=== PATIENT | female | born 1960 | race Caucasian/White ===

== ENCOUNTER → 2017-07-15 | Outpatient (CLI) | payer OTHER | LOC: HYPER 06:58 | DX: E11.622 Type 2 diabetes mellitus with other skin ulcer (principal); L97.821 Non-pressure chronic ulcer of other part of left lower leg limited to breakdown of skin; L89.154 Pressure ulcer of sacral region, stage 4; K57.21 Diverticulitis of large intestine with perforation and abscess with bleeding; E11.40 Type 2 diabetes mellitus with diabetic neuropathy, unspecified; I50.20 Unspecified systolic (congestive) heart failure; D64.9 Anemia, unspecified; J45.909 Unspecified asthma, uncomplicated; R60.9 Edema, unspecified; L30.9 Dermatitis, unspecified; Z79.84 Long term (current) use of oral hypoglycemic drugs; F41.9 Anxiety disorder, unspecified; M19.90 Unspecified osteoarthritis, unspecified site; Z90.710 Acquired absence of both cervix and uterus; Z87.891 Personal history of nicotine dependence; Z72.89 Other problems related to lifestyle ==

== ENCOUNTER → 2017-07-21 | Outpatient (CLI) | payer OTHER | LOC: HYPER 06:46 | DX: S81.801D Unspecified open wound, right lower leg, subsequent encounter (principal); S81.802D Unspecified open wound, left lower leg, subsequent encounter; L89.154 Pressure ulcer of sacral region, stage 4; E11.40 Type 2 diabetes mellitus with diabetic neuropathy, unspecified; K57.21 Diverticulitis of large intestine with perforation and abscess with bleeding; D64.9 Anemia, unspecified; R60.9 Edema, unspecified; L30.9 Dermatitis, unspecified; F41.9 Anxiety disorder, unspecified; J45.909 Unspecified asthma, uncomplicated; M19.90 Unspecified osteoarthritis, unspecified site; Z79.84 Long term (current) use of oral hypoglycemic drugs; Z90.710 Acquired absence of both cervix and uterus; Z87.891 Personal history of nicotine dependence; Z72.89 Other problems related to lifestyle; X58.XXXD Exposure to other specified factors, subsequent encounter ==

== ENCOUNTER → 2017-07-29 | Outpatient (CLI) | payer OTHER | LOC: HYPER 07:08 | DX: E11.622 Type 2 diabetes mellitus with other skin ulcer (principal); L89.154 Pressure ulcer of sacral region, stage 4; L98.491 Non-pressure chronic ulcer of skin of other sites limited to breakdown of skin; S81.801D Unspecified open wound, right lower leg, subsequent encounter; S81.802D Unspecified open wound, left lower leg, subsequent encounter; K57.21 Diverticulitis of large intestine with perforation and abscess with bleeding; E11.40 Type 2 diabetes mellitus with diabetic neuropathy, unspecified; D64.9 Anemia, unspecified; Z79.84 Long term (current) use of oral hypoglycemic drugs; L30.9 Dermatitis, unspecified; F41.9 Anxiety disorder, unspecified; J45.909 Unspecified asthma, uncomplicated; M19.90 Unspecified osteoarthritis, unspecified site; Z90.710 Acquired absence of both cervix and uterus; Z87.891 Personal history of nicotine dependence; Z72.89 Other problems related to lifestyle; X58.XXXD Exposure to other specified factors, subsequent encounter ==

== ENCOUNTER → 2017-08-19 | Outpatient (CLI) | payer OTHER | LOC: HYPER 07:11 | DX: E11.622 Type 2 diabetes mellitus with other skin ulcer (principal); L89.154 Pressure ulcer of sacral region, stage 4; L98.491 Non-pressure chronic ulcer of skin of other sites limited to breakdown of skin; S81.801D Unspecified open wound, right lower leg, subsequent encounter; S81.802D Unspecified open wound, left lower leg, subsequent encounter; K57.21 Diverticulitis of large intestine with perforation and abscess with bleeding; E11.40 Type 2 diabetes mellitus with diabetic neuropathy, unspecified; I50.20 Unspecified systolic (congestive) heart failure; J45.909 Unspecified asthma, uncomplicated; Z79.84 Long term (current) use of oral hypoglycemic drugs; L30.9 Dermatitis, unspecified; F41.9 Anxiety disorder, unspecified; M19.90 Unspecified osteoarthritis, unspecified site; Z87.891 Personal history of nicotine dependence; Z72.89 Other problems related to lifestyle; Z90.710 Acquired absence of both cervix and uterus; X58.XXXD Exposure to other specified factors, subsequent encounter ==

== ENCOUNTER → 2017-12-30 | Outpatient (CLI) | payer OTHER | LOC: HYPER 06:51 | DX: E11.622 Type 2 diabetes mellitus with other skin ulcer (principal); L98.491 Non-pressure chronic ulcer of skin of other sites limited to breakdown of skin; L89.154 Pressure ulcer of sacral region, stage 4; E11.40 Type 2 diabetes mellitus with diabetic neuropathy, unspecified; D64.9 Anemia, unspecified; R60.9 Edema, unspecified; F41.9 Anxiety disorder, unspecified; J45.909 Unspecified asthma, uncomplicated; M19.90 Unspecified osteoarthritis, unspecified site; Z90.710 Acquired absence of both cervix and uterus; Z87.891 Personal history of nicotine dependence; Z72.89 Other problems related to lifestyle ==

== ENCOUNTER → 2018-01-27 | Outpatient (CLI) | payer OTHER | LOC: HYPER 07:00 | DX: E11.622 Type 2 diabetes mellitus with other skin ulcer (principal); L98.491 Non-pressure chronic ulcer of skin of other sites limited to breakdown of skin; L89.154 Pressure ulcer of sacral region, stage 4; E11.40 Type 2 diabetes mellitus with diabetic neuropathy, unspecified; I50.20 Unspecified systolic (congestive) heart failure; D64.9 Anemia, unspecified; J45.909 Unspecified asthma, uncomplicated; R60.9 Edema, unspecified; K60.3 Anal fistula; F41.9 Anxiety disorder, unspecified; M19.90 Unspecified osteoarthritis, unspecified site; Z90.710 Acquired absence of both cervix and uterus; Z87.891 Personal history of nicotine dependence; Z72.89 Other problems related to lifestyle ==

== ENCOUNTER → 2018-04-12 | Outpatient (CLI) | payer OTHER | LOC: HYPER 06:49 | DX: E11.622 Type 2 diabetes mellitus with other skin ulcer (principal); L89.154 Pressure ulcer of sacral region, stage 4; L98.491 Non-pressure chronic ulcer of skin of other sites limited to breakdown of skin; E11.40 Type 2 diabetes mellitus with diabetic neuropathy, unspecified; I50.20 Unspecified systolic (congestive) heart failure; M19.90 Unspecified osteoarthritis, unspecified site; K60.3 Anal fistula; D64.9 Anemia, unspecified; J45.909 Unspecified asthma, uncomplicated; F41.9 Anxiety disorder, unspecified; Z90.710 Acquired absence of both cervix and uterus; Z87.891 Personal history of nicotine dependence ==

== ENCOUNTER → 2018-05-10 | Outpatient (CLI) | payer OTHER | LOC: HYPER 07:00 | DX: S81.801A Unspecified open wound, right lower leg, initial encounter (principal); E11.622 Type 2 diabetes mellitus with other skin ulcer; L98.491 Non-pressure chronic ulcer of skin of other sites limited to breakdown of skin; L89.154 Pressure ulcer of sacral region, stage 4; E11.40 Type 2 diabetes mellitus with diabetic neuropathy, unspecified; I50.20 Unspecified systolic (congestive) heart failure; D64.9 Anemia, unspecified; R60.9 Edema, unspecified; K60.3 Anal fistula; J45.909 Unspecified asthma, uncomplicated; F41.9 Anxiety disorder, unspecified; M19.90 Unspecified osteoarthritis, unspecified site; Z87.891 Personal history of nicotine dependence; X58.XXXA Exposure to other specified factors, initial encounter; Y93.89 Activity, other specified; Y92.89 Other specified places as the place of occurrence of the external cause; Y99.8 Other external cause status ==

== ENCOUNTER → 2018-06-14 | Outpatient (CLI) | payer OTHER | LOC: HYPER 07:04 | DX: E11.622 Type 2 diabetes mellitus with other skin ulcer (principal); L98.491 Non-pressure chronic ulcer of skin of other sites limited to breakdown of skin; L89.154 Pressure ulcer of sacral region, stage 4; S81.801D Unspecified open wound, right lower leg, subsequent encounter; I50.20 Unspecified systolic (congestive) heart failure; E11.40 Type 2 diabetes mellitus with diabetic neuropathy, unspecified; D64.9 Anemia, unspecified; J45.909 Unspecified asthma, uncomplicated; K60.3 Anal fistula; F41.9 Anxiety disorder, unspecified; M19.90 Unspecified osteoarthritis, unspecified site; Z87.891 Personal history of nicotine dependence; Z90.710 Acquired absence of both cervix and uterus; X58.XXXD Exposure to other specified factors, subsequent encounter ==

== ENCOUNTER → 2018-08-16 | Outpatient (CLI) | payer OTHER | LOC: HYPER 07:09 | DX: E11.622 Type 2 diabetes mellitus with other skin ulcer (principal); L98.491 Non-pressure chronic ulcer of skin of other sites limited to breakdown of skin; L89.154 Pressure ulcer of sacral region, stage 4; E11.40 Type 2 diabetes mellitus with diabetic neuropathy, unspecified; I50.20 Unspecified systolic (congestive) heart failure; K60.3 Anal fistula; J45.909 Unspecified asthma, uncomplicated; M19.90 Unspecified osteoarthritis, unspecified site; F41.9 Anxiety disorder, unspecified; F41.0 Panic disorder [episodic paroxysmal anxiety]; Z93.3 Colostomy status; Z87.891 Personal history of nicotine dependence ==

== ENCOUNTER → 2018-09-20 | Outpatient (CLI) | payer OTHER | LOC: HYPER 07:19 | DX: E11.622 Type 2 diabetes mellitus with other skin ulcer (principal); L89.154 Pressure ulcer of sacral region, stage 4; L98.491 Non-pressure chronic ulcer of skin of other sites limited to breakdown of skin; E11.40 Type 2 diabetes mellitus with diabetic neuropathy, unspecified; I50.20 Unspecified systolic (congestive) heart failure; J45.909 Unspecified asthma, uncomplicated; K60.3 Anal fistula; M19.90 Unspecified osteoarthritis, unspecified site; F41.9 Anxiety disorder, unspecified; Z93.3 Colostomy status; Z87.891 Personal history of nicotine dependence ==

== ENCOUNTER → 2018-10-25 | Outpatient (CLI) | payer OTHER | LOC: HYPER 06:54 | DX: E11.622 Type 2 diabetes mellitus with other skin ulcer (principal); L89.154 Pressure ulcer of sacral region, stage 4; L98.491 Non-pressure chronic ulcer of skin of other sites limited to breakdown of skin; E11.40 Type 2 diabetes mellitus with diabetic neuropathy, unspecified; I50.20 Unspecified systolic (congestive) heart failure; J45.909 Unspecified asthma, uncomplicated; K60.3 Anal fistula; M19.90 Unspecified osteoarthritis, unspecified site; F41.9 Anxiety disorder, unspecified; Z87.891 Personal history of nicotine dependence; Z93.3 Colostomy status ==

== ENCOUNTER → 2018-12-13 | Outpatient (CLI) | payer OTHER | LOC: HYPER 06:42 | DX: E11.622 Type 2 diabetes mellitus with other skin ulcer (principal); L89.154 Pressure ulcer of sacral region, stage 4; L98.491 Non-pressure chronic ulcer of skin of other sites limited to breakdown of skin; E11.40 Type 2 diabetes mellitus with diabetic neuropathy, unspecified; I50.20 Unspecified systolic (congestive) heart failure; J45.909 Unspecified asthma, uncomplicated; K60.3 Anal fistula; M19.90 Unspecified osteoarthritis, unspecified site; F41.9 Anxiety disorder, unspecified; F41.0 Panic disorder [episodic paroxysmal anxiety]; Z93.3 Colostomy status; Z87.891 Personal history of nicotine dependence ==

== ENCOUNTER → 2019-01-17 | Outpatient (CLI) | payer OTHER | LOC: HYPER 07:11 | DX: E11.622 Type 2 diabetes mellitus with other skin ulcer (principal); L89.154 Pressure ulcer of sacral region, stage 4; L98.491 Non-pressure chronic ulcer of skin of other sites limited to breakdown of skin; E11.40 Type 2 diabetes mellitus with diabetic neuropathy, unspecified; I50.20 Unspecified systolic (congestive) heart failure; J45.909 Unspecified asthma, uncomplicated; K60.3 Anal fistula; M19.90 Unspecified osteoarthritis, unspecified site; F41.9 Anxiety disorder, unspecified; Z93.3 Colostomy status; Z87.891 Personal history of nicotine dependence ==

== ENCOUNTER → 2019-04-11 | Outpatient (CLI) | payer OTHER | LOC: HYPER 04-04 06:18 | DX: E11.622 Type 2 diabetes mellitus with other skin ulcer (principal); L89.154 Pressure ulcer of sacral region, stage 4; L98.491 Non-pressure chronic ulcer of skin of other sites limited to breakdown of skin; E11.40 Type 2 diabetes mellitus with diabetic neuropathy, unspecified; I50.20 Unspecified systolic (congestive) heart failure; K60.3 Anal fistula; M19.90 Unspecified osteoarthritis, unspecified site; J45.909 Unspecified asthma, uncomplicated; R60.9 Edema, unspecified; F41.9 Anxiety disorder, unspecified; Z87.891 Personal history of nicotine dependence ==

== ENCOUNTER → 2019-06-27 | Outpatient (CLI) | payer OTHER | LOC: HYPER 06:49 | DX: E11.622 Type 2 diabetes mellitus with other skin ulcer (principal); L89.154 Pressure ulcer of sacral region, stage 4; L98.491 Non-pressure chronic ulcer of skin of other sites limited to breakdown of skin; E11.40 Type 2 diabetes mellitus with diabetic neuropathy, unspecified; R60.9 Edema, unspecified; I50.20 Unspecified systolic (congestive) heart failure; J45.909 Unspecified asthma, uncomplicated; K60.3 Anal fistula; M19.90 Unspecified osteoarthritis, unspecified site; F41.9 Anxiety disorder, unspecified; Z93.3 Colostomy status; Z87.891 Personal history of nicotine dependence ==

== ENCOUNTER → 2019-08-23 | Outpatient (CLI) | payer OTHER | LOC: HYPER 07:36 | DX: E11.622 Type 2 diabetes mellitus with other skin ulcer (principal); L98.491 Non-pressure chronic ulcer of skin of other sites limited to breakdown of skin; L89.154 Pressure ulcer of sacral region, stage 4; S81.801D Unspecified open wound, right lower leg, subsequent encounter; E11.40 Type 2 diabetes mellitus with diabetic neuropathy, unspecified; R60.9 Edema, unspecified; I50.20 Unspecified systolic (congestive) heart failure; K60.3 Anal fistula; M19.90 Unspecified osteoarthritis, unspecified site; J45.909 Unspecified asthma, uncomplicated; F41.9 Anxiety disorder, unspecified; Z87.891 Personal history of nicotine dependence; X58.XXXD Exposure to other specified factors, subsequent encounter ==